=== PATIENT | female | born 1990 | race Two or more races ===

== ENCOUNTER 2024-08-08 02:34 | Emergency (ER) | payer OTHER ==
[~2024-08-08] VITALS: Ht 157.5 cm; Wt 56.3 kg
[2024-08-08] MEDS ORDERED: ACETAMINOPHEN 325 MG TAB PO ONE (02:45)
[2024-08-08] MEDS ORDERED: KETOROLAC TROMETH 30 MG/ML 1ML VIAL IM ONE (02:45)
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
[2024-08-08 03:43] VITALS: TEMP 98.9
[2024-08-08 03:44] VITALS: PULSE 83; RESP 12; O2SAT 97
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
[2024-08-08] MEDS: IBUPROFEN 600 MG TAB PO ONE (03:50)
[2024-08-08] MEDS: ACETAMINOPHEN 325 MG TAB PO ONE (03:50)
[2024-08-08] MEDS ORDERED: ACET650T12 PO (03:51)
[2024-08-08] MEDS ORDERED: IBUP-1454 PO (03:51)
[2024-08-08] MEDS ORDERED: CYCL-838 PO (03:51)
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
[2024-08-08 05:05] VITALS: BP 116/80; PULSE 71; RESP 11; O2SAT 99
--- NOTE | 2024-08-08 09:51 | ECG ---
[facility] Test Date: 2024-08-08 Test Time: 02:52:43 Pat Name: VIVIANE ROSENTHAL Department: ER Room: Gender: F Front Office Supervisor: KAYE : 1990 Requested By: BISHNU ARIZA Order Number: [id number] Reading MD: Umang Oreilly Measurements Intervals [place] Rate: 84 P: 71 W[place]: 146 QRS: 76 QRSD: 77 T: 58 QT: 377 QTc: 446 Interpretive Statements Sinus rhythm Probable left atrial enlargement Electronically Signed On 08-11-2024 12:40:47 PDT by Umang Oreilly Please click the below link to view image of tracing.
== END 2024-08-08 05:07 | disposition home or self-care (01) ==
LOC: ER 02:34
DX: M54.2 Cervicalgia (principal); M54.6 Pain in thoracic spine; R51.9 Headache, unspecified; R07.89 Other chest pain; Z79.1 Long term (current) use of non-steroidal anti-inflammatories (NSAID); Z79.899 Other long term (current) drug therapy; V89.2XXA Person injured in unspecified motor-vehicle accident, traffic, initial encounter; Y93.89 Activity, other specified; Y92.89 Other specified places as the place of occurrence of the external cause; Y99.8 Other external cause status
CPT/HCPCS: 70450; 71045; 72125; 93005